=== PATIENT | male | born 1990 | race Two or more races ===

== ENCOUNTER 2024-04-07 07:03 | Emergency (ER) | payer MEDICAID, OTHER ==
[~2024-04-07] VITALS: Ht 172.7 cm; Wt 110.0 kg
[2024-04-07 07:40] VITALS: BP 142/88; PULSE 77; RESP 17; TEMP 98.2; O2SAT 98
[2024-04-07] MEDS: FLUORESCEIN SOD OPTH TEST STRIP LEFTEYE ONE (07:49)
[2024-04-07] MEDS: TETRACAINE HCL 0.5% OPTH(EYE) SOLN 4ML LEFTEYE ONE (07:49)
--- NOTE | 2024-04-07 07:50 | ED.PDOC ---
Eye-HPI HPI Comments 33 y/o male patient presents to the clinic for left eye irritation. Patient reports that he felt so something got into his eye in the middle of the eye while sleeping. Patient has started to rub the eye. Patient to feels as though there is something in the left eye. Patient complaining blurriness to the left eye. Patient denies any irritation or discharge prior to this incident. Patient denies wearing contacts. Chief Complaint: Eye Problem Time Seen by MD: 07:28 Primary Care Provider: SOPHY Flores Notes: Nurses Notes, Medications Allergies: Coded Allergies: NO KNOWN ALLERGIES (Unverified , 04/07/24) Home Meds Active Scripts Erythromycin (Erythromycin) 5 Mg/Gm Oin, 0.5 IN. OP QID for 7 Days, #1 OIN 0 Refills Prov:PRESTON ALDRIDGE [facility] 04/07/24 Ketorolac Tromethamine (Ophth) (Ketorolac Tromethamine) 0.4 % Alpa, 1 DROP LEFTEYE QID, #5 ML Prov:PRESTON ALDRIDGE [facility] 04/07/24 Mode of Arrival: Ambulatory Family History Family History: Reviewed,noncontributory to illness Constitutional: denies: chills, diaphoresis, fatigue, fever, malaise, sweats, weakness, others EENTM: reports: blurred vision, eye pain, eye redness, tearing Respiratory: denies: cough, hemoptysis, orthopnea, SOB at rest, shortness of breath, SOB with excertion, stridor, wheezing, others Cardiovascular: denies: chest pain, dizzy spells, diaphoresis, Dyspnea on exertion, edema, irregular heart beat, left arm pain, lightheadedness, palpitations, PND, syncope, others Gastrointestinal: denies: abdomen distended, abdominal pain, blood streaked bowels, constipated, diarrhea, dysphagia, difficulty swallowing, hematemesis, melena, nausea, poor appetite, poor fluid intake, rectal bleeding, rectal pain, vomiting, others Genitourinary: denies: burning, dysuria, flank pain, frequency, hematuria, incontinence, penile discharge, penile sore, pain, testicle pain, testicle swelling, urgency, others Neurological: denies: dizziness, fainting, headache, left sided numbness, left sided weakness, numbness, paresthesia, pre-existing deficit, right sided numbness, right sided weakness, seizure, speech problems, tingling, tremors, weakness, others Musculoskeletal: denies: back pain, gout, joint pain, joint swelling, muscle pain, muscle stiffness, neck pain, others Integumetry: denies: bruises, change in color, change in hair/nails, dryness, laceration, lesions, lumps, rash, wounds, others Allergic/Immunocompromised: denies: Difficulty Healing, Frequent Infections, Hives, Itching, others Hematologic/Lymphatic: denies: anemia, blood clots, easy bleeding, easy bruising, swollen glands, others Endocrine: denies: excessive hunger, excessive sweating, excessive thirst, excessive urination, flushing, intolerance to cold, intolerance to heat, unexp lained weight gain, unexplained weight loss, others Psychiatric: denies: anxiety, bipolar disorder, depression, hopeless, panic disorder, schizophrenia, sleepless, suicidal, others All Other Systems: Reviewed and Negative Physical Exam General Appearance: No Apparent Distress, Normal HEENT: Eye Lid (L), Normal ENT Inspection, PERRL/EOMI, Pharynx Normal, TMs Normal Neck: Full Range of Motion, Non-Tender, Normal, Normal Inspection Respiratory: Chest Non-Tender, Lungs Clear, No Accessory Muscle Use, No Respiratory Distress, Normal Breath Sounds Cardiovascular: No Edema, No JVD, No Murmur, No Gallop, Normal Peripheral Pulses, Regular Rate/Rhythm Breast Exam: Deferred Gastrointestinal: No Organomegaly, Non Tender, No Pulsatile Mass, Normal Bowel Sounds, Soft Genitalia: Deferred Pelvic: Deferred Rectal: Deferred Extremities: No calf tenderness, Normal capillary refill, Normal inspection, Normal range of motion, Non-tender, No pedal edema Musculoskeletal : Apperance: Normal Neurologic: Alert, mask design engineer II-XII nml as Tested, No Motor Deficits, Normal Affect, Normal Mood, No Sensory Deficits Cerebellar Function: Normal Reflexes: Normal Skin: Dry, Normal Color, Warm Lymphatic: No Adenopathy Was a procedure done? Was a procedure done?: Yes Sedation Sedation?: No Informed consent obtained: Yes Other Procedure Procedure Eye exam using Wood's lamp and fluorescein Anesthetic Tetracaine Informed consent obtained: Yes Risks, benefits, and alternati: Yes EENT DIFF Eye: Allergic, Bacterial, Corneal Abrasion, Corneal Lacerations, Foreign Body- Conjunctiva, Foreign Body-Corneal Ear: N/A Nose: N/A Mouth: N/A Sore Throat: N/A X-Ray, Labs, Meds, VS Vital Signs Date Time Temp Pulse Resp B/P (MAP) Pulse Ox O2 Delivery O2 Flow Rate FiO2 04/07/24 07:40 98.2 72 17 142/88 (106) 98 98.2 04/07/24 07:40 77 17 98 Room Air 04/07/24 07:25 97.6 74 18 147/89 (108) 97 Current Medications Medications (Trade) Dose Ordered Sig/Sean Route Start Time Stop Time Status Last Admin Tetracaine HCl (Tetracaine 0.5% Opth Soln) 1 drop ONCE ONCE LEFTEYE 04/07/24 07:45 04/07/24 07:47 DC 04/07/24 07:49 Fluorescein Sodium (Ful-Keshia) 1 mg ONCE ONCE LEFTEYE 04/07/24 07:45 04/07/24 07:47 DC 04/07/24 07:49 X-Ray, Labs, Meds, VS Comment Patient advised to apply antibiotic ointment 4 times a day. Patient advised that he may use ketorolac drops for the next 48 hours. Patient advised to avoid rubbing his eyes. Patient may apply ice packs to the eye to help with pain relief. Patient advised to come back to the emergency room with increasing pain or visual changes. On re-evaluation patient has symptomatic improvement. Patient is stable for discharge at this time. All test results and diagnostic imaging have been interpreted. All diagnostic findings, discharge care, and education instruction provided to the patient. Follow-up with PCP in 2-3 days Patient verbalized understanding, discharge instructions and agrees to treatment plan Vital signs are stable Patient is ambulatory Patient advised of which symptoms necessitate a return visit to the emergency room. Patient to return emergency room for any new worsening symptoms. Patient is aware that the purpose of this visit is for an acute medical emergency requiring emergent stabilization. Chronic conditions, including malignancies have not been ruled out. Patient is instructed to follow up with PCP as directed for continued care and workup. If unable to arrange follow up, patient is to return to the emergency room for reassessment. Patient was given verbal and written discharge instructions and acknowledges understanding Time of 1ST Reevaluation: 08:01 Reevaluation 1ST: Improved Patient Education/Counseling: Diagnosis, Treatment, Prognosis Family Education/Counseling: No Family Present Departure 1 Departure Time of Disposition: 07:56 Impression: Primary Impression: Cornea abrasion Qualified Codes: S05.02XA - Injury of conjunctiva and corneal abrasion without foreign body, left eye, initial encounter Disposition: HOME / SELF CARE / HOMELESS Condition: Stable e-Prescriptions Erythromycin (Erythromycin) 5 Mg/Gm Oin 0.5 IN. OP QID for 7 Days, #1 OIN 0 Refills Prov: PRESTON ALDRIDGE 04/07/24 Ketorolac Tromethamine (Ophth) (Ketorolac Tromethamine) 0.4 % Alpa 1 DROP LEFTEYE QID, #5 ML Prov: PRESTON ALDRIDGE 04/07/24 Discharged With: Self Critical Care Note Critical Care Time?: No Stability Stability form required: No Heart Score Heart Score: Heart Score Response (Comments) Value History N/A 0 EKG N/A 0 Age N/A 0 Risk Factors N/A 0 Troponin N/A 0 Total 0 PRESTON ALDRIDGE Apr 07, 2024 07:50
[2024-04-07] MEDS ORDERED: KETO0.3S LEFTEYE (08:00)
[2024-04-07] MEDS ORDERED: ERY05OO OP (08:00)
== END 2024-04-07 08:06 | disposition home or self-care (01) ==
LOC: ER 07:03
DX: S05.02XA Injury of conjunctiva and corneal abrasion without foreign body, left eye, initial encounter (principal); X58.XXXA Exposure to other specified factors, initial encounter; Y93.89 Activity, other specified; Y92.89 Other specified places as the place of occurrence of the external cause; Y99.8 Other external cause status

== ENCOUNTER 2025-01-20 15:59 | Emergency (ER) | payer MEDICAID ==
[~2025-01-20] VITALS: Ht 175.3 cm; Wt 109.5 kg
[~2025-01-20 15:59] MED LIST: ERY05OO OP; KETO0.3S LEFTEYE
[2025-01-20] MEDS ORDERED: CEPH500C PO (17:15)
[2025-01-20] MEDS ORDERED: TOB03OS OP (17:15)
[2025-01-20 17:16] VITALS: BP 126/92; PULSE 107; RESP 18; TEMP 97.6; O2SAT 98
--- NOTE | 2025-01-20 17:17 | ED.PDOC ---
Eye-HPI HPI Comments A 34 YEAR OLD MALE PRESENTS TO THE ED WITH COMPLAINT OF EYE PAIN. 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 PATIENT RELAYS THAT THE PAIN AND REDNESS HAS WORSENED ALONG WITH HAVING THE SENSATION OF A FOREIGN BODY IN HIS UPPER EYELID. PATIENT DENIES DISCHARGE, VISION LOSS, PHOTOPHOBIA, FEVER, CHILLS, SHORTNESS OF BREATH, CHEST PAIN, ABDOMINAL PAIN, NAUSEA, VOMITING, HEADACHE, OR OTHER COMPLAINTS. NO OTHER SYMPTOMS OR MODIFYING FACTORS AT THIS TIME. PATIENT IS ALERT, ORIENTED X 4, AND HAS STEADY GAIT. Chief Complaint: Eye Problem Time Seen by MD: 17:15 Primary Care Provider: SOPHY Flores Notes: Nurses Notes, Medications, Allergies Allergies: Coded Allergies: NO KNOWN ALLERGIES (Unverified , 04/07/24) Home Meds Active Scripts Cephalexin Monohydrate (Cephalexin) 500 Mg Cap, 1 CAP PO QID, #32 CAP Prov:CARMEN MANRIQUE 01/20/25 Tobramycin Sulfate (Tobrex) [address], 2 DROP OP QID, #5 ML Prov:CARMEN MANRIQUE 01/20/25 Erythromycin (Erythromycin) 5 Mg/Gm Oin, 0.5 IN. OP QID for 7 Days, #1 OIN 0 Refills Prov:PRESTON ALDRIDGE [facility] 04/07/24 Ketorolac Tromethamine (Ophth) (Ketorolac Tromethamine) 0.4 % Alpa, 1 DROP LEFTEYE QID, #5 ML Prov:PRESTON ALDRIDGE [facility] 04/07/24 Information Source: Patient Mode of Arrival: Ambulatory Timing: Days Duration: Since onset Prehospital treatment: None Quality: Pain, Red, FB sensation Eye Location: Left Lids: Location (LEFT), Red Cornea: Left eye, Abrasion Pupils: Normal EOM: Normal Fundus: Normal Anterior chamber: Normal Onset: FB Exposure Throat Exposed to: None Associated signs and symptoms: Tearing Past Medical History PAST MEDICAL HISTORY: Denies Surgical History: Denies all surgeries Family History Family History: Reviewed,noncontributory to illness Social History Smoker: Non-Smoker Alcohol: Denies ETOH Use Drugs: Denies Drug Use Lives In: Home Constitutional: denies: chills, diaphoresis, fatigue, fever, malaise, sweats, weakness, others EENTM: reports: eye pain, eye redness; denies: blurred vision, double vision, e ar bleeding, ear discharge, ear drainage, ear pain, ear ringing, hearing loss, mouth pain, mouth swelling, nasal discharge, nose bleeding, nose congestion, nose pain, photophobia, tearing, throat pain, throat swelling, voice changes, others Respiratory: denies: cough, hemoptysis, orthopnea, SOB at rest, shortness of breath, SOB with excertion, stridor, wheezing, others Cardiovascular: denies: chest pain, dizzy spells, diaphoresis, Dyspnea on exertion, edema, irregular heart beat, left arm pain, lightheadedness, palpitations, PND, syncope, others Gastrointestinal: denies: abdomen distended, abdominal pain, blood streaked bowels, constipated, diarrhea, dysphagia, difficulty swallowing, hematemesis, melena, nausea, poor appetite, poor fluid intake, rectal bleeding, rectal pain, vomiting, others Genitourinary: denies: burning, dysuria, flank pain, frequency, hematuria, incontinence, penile discharge, penile sore, pain, testicle pain, testicle swelling, urgency, others Neurological: denies: dizziness, fainting, headache, left sided numbness, left sided weakness, numbness, paresthesia, pre-existing deficit, right sided numbness, right sided weakness, seizure, speech problems, tingling, tremors, weakness, others Musculoskeletal: denies: back pain, gout, joint pain, joint swelling, muscle pain, muscle stiffness, neck pain, others Integumetry: denies: bruises, change in color, change in hair/nails, dryness, laceration, lesions, lumps, rash, wounds, others Allergic/Immunocompromised: denies: Difficulty Healing, Frequent Infections, Hives, Itching, others Hematologic/Lymphatic: denies: anemia, blood clots, easy bleeding, easy bruising, swollen glands, others Endocrine: denies: excessive hunger, excessive sweating, excessive thirst, excessive urination, flushing, intolerance to cold, intolerance to heat, unex plained weight gain, unexplained weight loss, others Psychiatric: denies: anxiety, bipolar disorder, depression, hopeless, panic disorder, schizophrenia, sleepless, suicidal, others All Other Systems: Reviewed and Negative Physical Exam General Appearance: No Apparent Distress, Obese HEENT: Cornea (L) (WOOD LAMP EXAM OF LEFT EYE: NO FB, MILD CORNEA ABRASION. ), Eye Lid (L) (A STYE INSIDE LEFT UPPER EYELID WITH REDNESS AND MILD SWELLING. ), PERRL/EOMI, Pharynx Normal, TMs Normal Neck: Full Range of Motion, Non-Tender, Normal, Normal Inspection Respiratory: Chest Non-Tender, Lungs Clear, No Accessory Muscle Use, No Res piratory Distress, Normal Breath Sounds Cardiovascular: No Edema, No JVD, No Murmur, No Gallop, Normal Peripheral Pulses, Regular Rate/Rhythm Breast Exam: Deferred Gastrointestinal: No Organomegaly, Non Tender, No Pulsatile Mass, Normal Bowel Sounds, Soft Genitalia: Deferred Pelvic: Deferred Rectal: Deferred Extremities: No calf tenderness, Normal capillary refill, Normal inspection, Normal range of motion, Non-tender, No pedal edema Musculoskeletal : Apperance: Normal Neurologic: Alert, arc cutter plasma arc II-XII nml as Tested, No Motor Deficits, Normal Affect, Normal Mood, No Sensory Deficits Cerebellar Function: Normal Reflexes: Normal Skin: Dry, Normal Color, Warm Peripheral Pulses: 2+ carotid (R), 2+ carotid (L) Lymphatic: No Adenopathy Was a procedure done? Was a procedure done?: No EENT DIFF Eye: Conjunctivitis, Bacterial, Corneal Abrasion, Hordeolum (stye) X-Ray, Labs, Meds, VS Vital Signs Date Time Temp Pulse Resp B/P (MAP) Pulse Ox O2 Delivery O2 Flow Rate FiO2 01/20/25 17:16 97.6 107 18 126/92 (103) 98 97.6 01/20/25 16:01 97.6 107 18 126/92 98 97.6 X-Ray, Labs, Meds, VS Comment EXTERNAL MEDICAL RECORDS REVIEWED: [NONE] INDEPENDENT HISTORIANS: [NONE] SOCIAL DETERMINANTS OF HEALTH: [NONE] LABS ORDERED: NONE REVIEWED AND INTERPRETED RESULTS: NONE IMAGING ORDERED: NONE TREATMENTS ORDERED: NONE PROCEDURES PERFORMED: NONE CRITICAL CARE TIME: NONE I HAVE DISCUSSED THE PATIENT WITH THE ATTENDING PHYSICIAN DR. STOVER AND HE AGREES WITH THE PATIENT'S PLAN OF CARE AND DISPOSITION. BASED ON HISTORY OF PRESENT ILLNESS, AND PHYSICAL EXAM, PATIENT WILL BE DISCHARGED HOME. DISCUSSED PLAN FOR DISCHARGE HOME WITH RX [TOBRAMYCIN AND KEFLEX]. MEDICATION WARNINGS GIVEN. SHARED DECISION MAKING: DISCUSSED WITH PATIENT THAT THEIR WORKUP WAS NORMAL. PATIENT INSTRUCTED TO FOLLOW UP WITH PRIMARY CARE PROVIDER IN 1-2 DAYS FOR RE- EVALUATION OF SYMPTOMS. PATIENT VERBALIZES UNDERSTANDING TO RETURN TO ED FOR NEW OR WORSENING SYMPTOMS OR IF FOLLOW UP WITH PCP CANNOT BE OBTAINED. PATIENT FEELS COMFORTABLE GOING HOME AT THIS TIME. ALL QUESTIONS ADDRESSED AT TIME OF DI SCHARGE. Time of 1ST Reevaluation: 17:20 Reevaluation 1ST: Improved Patient Education/Counseling: Diagnosis, Treatment, Need For Follow Up Family Education/Counseling: Diagnosis, Treatment, No Family Present Medical Screening: No EMC Exist At This Time SEPSIS Sepsis Screen Date sepsis recognized/suspect: Jan 20, 2025 Time Sepsis recognized/suspect: 1605 Recent Procedure: No On Antibiotic Therapy: No Respiratory Rate >20: No Heart Rate >90: No Temp<36 C (96.8 F) or >38.3 C: No SBP <90 or MAP <65 mmHG: No New Acute Mental Status Change: No Is the patient on CPAP, BIPAP,: No Vital Signs Date Time Temp Pulse Resp B/P (MAP) Pulse Ox O2 Delivery O2 Flow Rate FiO2 01/20/25 17:16 97.6 107 18 126/92 (103) 98 97.6 01/20/25 16:01 97.6 107 18 126/92 98 97.6 Departure 1 Departure Time of Disposition: 17:20 Impression: Primary Impression: Hordeolum internum left upper eyelid Additional Impression: Cornea abrasion Qualified Codes: S05.02XA - Injury of conjunctiva and corneal abrasion without foreign body, left eye, initial encounter Disposition: HOME / SELF CARE / HOMELESS Condition: Stable Additional Instructions: FOLLOW-UP WITH PCP IN 1 TO 2 DAYS. TAKE MEDICATIONS PRESCRIBED. RETURN TO ED FOR ANY NEW OR WORSENING SYMPTOMS. e-Prescriptions Cephalexin Monohydrate (Cephalexin) 500 Mg Cap 1 CAP PO QID, #32 CAP Prov: CARMEN MANRIQUE 01/20/25 Tobramycin Sulfate (Tobrex) [address] 2 DROP OP QID, #5 ML Prov: CARMEN MANRIQUE 01/20/25 Discharged With: Self Critical Care Note Critical Care Time?: No Stability Stability form required: No Heart Score Heart Score: Heart Score Response (Comments) Value History N/A 0 EKG N/A 0 Age N/A 0 Risk Factors N/A 0 Troponin N/A 0 Total 0 I personally scribed for CARMEN MANRIQUE ([email or web address]) on 01/20/25 at 17:17. Electronically submitted by Jr Pappas ([email or web address]). CARMEN MANRIQUE Jan 20, 2025 17:17
== END 2025-01-20 17:19 | disposition home or self-care (01) ==
LOC: ER 15:59
DX: S05.02XA Injury of conjunctiva and corneal abrasion without foreign body, left eye, initial encounter (principal); H00.024 Hordeolum internum left upper eyelid; X58.XXXA Exposure to other specified factors, initial encounter; Y93.89 Activity, other specified; Y92.89 Other specified places as the place of occurrence of the external cause; Y99.8 Other external cause status